=== PATIENT | male | born 1945 | race Caucasian/White ===

== ENCOUNTER → 2017-07-26 11:58 | Outpatient (CLI) | payer MEDICARE, OTHER, SELFPAY ==
--- NOTE | 2017-07-27 13:47 | DI.NM.S_ITS ---
DATE OF SERVICE: 07/26/2017 PROCEDURE PERFORMED: Exercise treadmill stress and rest myocardial perfusion imaging study with gating to assess ejection fraction and regional wall motion. ORDERING PROVIDER: Emil Rubalcava MD INDICATIONS: The patient is a 72-year-old male with a history of myopathy, atypical chest discomfort, and hyperlipidemia. EXERCISE TREADMILL TESTING: The patient was able to exercise for 7 minutes 21 seconds on a standard Xavi protocol, suggesting good exercise capacity with an GONZALEZ of -10%. He had a normal heart rate and blood pressure response, achieving a maximum heart rate of 142 BPM (97% of his predicted maximum). He had no chest discomfort. His resting ECG shows some nonspecific upsloping ST depression in the inferior leads which becomes slightly more prominent but remain nonspecific. He had occasional PVCs, most notably in recovery, with occasional couplets but no other complex ectopy. At 6 minutes 20 seconds of exercise at a heart rate of 127 BPM, 27.4 mCi of technetium-99 Myoview IV was injected, and the patient was imaged 20 minutes later using a gated SPECT acquisition protocol. He returned the following day and was reinjected with an additional 26.9 mCi of technetium-99 Myoview and was imaged 30 minutes later using a gated SPECT acquisition protocol. FINDINGS: 1. RAW DATA: There was fair myocardial tracer uptake, although some slight motion is detected. Lung/heart ratio was normal at 0.33 with a normal TID ratio of 1.03. 2. QUANTITATIVE GATED SPECT: Post-stress ejection fraction is estimated at 58% with a possible subtle inferior wall motion abnormality in the proximal portion. The resting ejection fraction is 68% but appears identical to that of the post stress images with a similar contraction pattern. Resting end-diastolic volume is at the upper limits of normal at 129 mL. 3. MYOCARDIAL PERFUSION IMAGING: Post-stress supine images show a mild perfusion defect in the proximal and mid inferior wall extending slightly to the distal inferior wall. While this defect improves somewhat on the prone images, it remains present to some extent, particularly in the proximal portion of the inferior wall. The resting images show a near identical perfusion pattern with perhaps very subtle improvement at the periphery of this defect, but there is no significant reversibility. CONCLUSION: 1. Probable abnormal myocardial perfusion study. 2. Predominantly fixed but minimally reversible ilpdiiud-es-eue inferior perfusion defect extending slightly to the distal inferior wall that persists slightly on the prone images. Given the persistence on the prone imaging as well as the suggestion of an inferior wall motion abnormality, this most likely reflects a previous nontransmural myocardial infarction with minimal lorraine- infarct ischemia. 3. Preserved left ventricular systolic function with a question of a subtle, fixed wall motion abnormality in the proximal inferior wall. Left ventricular volumes are at the upper limits of normal. 4. Good exercise capacity without angina or significant ECG changes to suggest ischemia. Occasional PVCs, rarely in couplets, are noted, but no other complex ventricular ectopy. Gaston Winter - /kwesi/ doc#: [id number]/job#: [id number] dd: 07/27/2017 13:03:00 dt: 07/27/2017 13:26:00 DICTATING MD/COPIES TO: Logan Barajas MD; Emil Rubalcava MD COPIES MNE: DORIS WOLFE
== END ==
PROVIDERS: PCP Family Medicine; Visit Provider Internal Medicine Cardiovascular Disease
DX: R07.89 Other chest pain (principal); G72.9 Myopathy, unspecified; E78.5 Hyperlipidemia, unspecified
CPT/HCPCS: 78452; 93016; 93017; 93018; A9502

== ENCOUNTER → 2017-10-08 09:18 | Outpatient (CLI) | payer MEDICARE, OTHER, SELFPAY ==
[2017-10-08 10:23] LABS: Cholesterol 166 mg/dL (140-199); HDL Cholesterol 55 mg/dL (40-60); LDL Cholesterol Calculated 98 mg/dL (<100); Triglycerides 67 mg/dL (35-150)
== END ==
PROVIDERS: PCP Family Medicine; Visit Provider Internal Medicine Cardiovascular Disease
DX: E78.5 Hyperlipidemia, unspecified (principal)
CPT/HCPCS: 36415; 80061

== ENCOUNTER → 2024-11-12 19:02 | Outpatient (CLI) | payer MEDICARE, OTHER, SELFPAY ==
--- NOTE | 2024-11-12 19:05 | DI.MRI.S_ITS ---
PROCEDURE: MR KNEE RT WO CON INDICATIONS: chronic right knee pain, instability TECHNIQUE: Noncontrast sagittal PD fast spin echo and T2 fast spin echo with fat saturation, sagittal 3-D FLASH with fat saturation; coronal T1 spin echo and PD fast spin echo with fat saturation, and axial PD fast spin echo with fat saturation through the knee. COMPARISON: None. FINDINGS: Image quality: Excellent. Menisci: Abnormal appearance with macerated/degenerated, torn medial meniscus with minimal blunted anterior and posterior horns. The lateral meniscus demonstrates some irregular signal in the anterior meniscal root and at the posterior meniscocapsular junction, meniscocapsular separation. Cruciate ligaments: Abnormal appearance with absence/torn anterior cruciate ligament and markedly thickened heterogeneous posterior cruciate ligament , injury/strain and/or partial tear with a few intact fibers. Medial structures: Increased T2 weighted signal/edema adjacent to the medial collateral ligament with some internal signal grade 2 injury. Moderate increased medial bursal fluid. Tendinopathy versus partial tear distal semimembranosus tendon. Large multi septated popliteal cyst likely partially ruptured into the soft tissues with soft tissue edema in total measures up to 11 cm cc by 3.5 cm transverse by 2.5 cm AP maximal dimensions. Mild fluid surrounding the distal pes anserinus tendons, tenosynovitis. Lateral structures: Heterogeneous increased T2 weighted signal of the lateral collateral ligament proximal and mid suspicious for partial tear. Moderate increased lateral bursal fluid and adjacent soft tissue edema. Heterogeneous signal with partial tear of the distal popliteus tendon. The long and short heads of the biceps femoris tendon appear intact. Iliotibial band appears normal. Anterior structures: Nonspecific thickening distal quadriceps tendon with superior patellar enthesophyte calcification. Patellar ligament demonstrates mild increased T2 weighted signal injury/strain with thickening diffusely. Moderate diffuse nonspecific edema in the infrapatellar fat pad. Patella baja configuration. Mild lateral subluxation up to 7 mm of the patella. Bones and cartilage: 7 mm focal cartilage defect in the lateral patellar facet. Mild irregularity in the central patella apex and femoral cartilage. Severe diffuse cartilage thinning in the medial compartment with probable 3 mm focal cartilage defect. [id number] cartilage thinning in the lateral compartment. Tricompartmental osteophytes Kellgren Mesha 3 degenerative changes. Joint space: Moderate to large knee joint effusion. IMPRESSION: Degenerative changes as discussed above. Macerated/degenerated, torn medial meniscus. Absence/torn anterior cruciate ligament. Injury/strain suspected partial tear posterior cruciate ligament. Grade 2 injury medial and lateral collateral ligaments. Multiple tendons as discussed above with tendinopathy. Large knee joint effusion Other findings as above. Dictated by: Alfred Hamm M.D. on 11/14/2024 at 12:52 Approved by: Alfred Hamm M.D. on 11/14/2024 at 13:08
== END ==
LOC: MRI 19:04
PROVIDERS: PCP Family Medicine; Referring Provider Physical Medicine & Rehabilitation; Visit Provider Physical Medicine & Rehabilitation
DX: S83.241A Other tear of medial meniscus, current injury, right knee, initial encounter (principal); S83.511A Sprain of anterior cruciate ligament of right knee, initial encounter; M23.51 Chronic instability of knee, right knee; M25.561 Pain in right knee; M25.461 Effusion, right knee; M71.21 Synovial cyst of popliteal space [Baker], right knee
CPT/HCPCS: 73721